=== PATIENT | male | born 1940 | race Caucasian/White ===

== ENCOUNTER 2020-10-28 19:01 | Emergency (ER) | payer MEDICARE, SELFPAY ==
[~2020-10-28] VITALS: Ht 190.5 cm; Wt 88.0 kg
[~2020-10-28 19:01] MED LIST: ASPIRIN EC81 MG PO; ATORVASTATIN CA10 MG PO; BASAGLAR K100 UNIT/1 SQ; CLOPIDOGREL75 MG PO; FAMOTIDINE20 MG PO; FENOFIBRATE145 MG PO; FISH OIL 1,0001 EAC1 PO; FUROSEMIDE20 MG PO; GLIPIZIDE ER10 MG PO; GLUCOPHAGE 500500 MG PO; HUMALOG100 UNIT/1 SQ; HYDROXYZINE HCL50 MG PO; LOPRESSOR 50 MG50 MG PO; MULTI-VITAMIN1 EACH PO; NORVASC 5 MG TAB5 MG PO; OMEPRAZOLE20 MG PO
[2020-10-28 19:27] LABS: HEMOGLOBIN 11.9 gm/dl (14.0-17.5); RED BLOOD COUNT 3.86 M/UL (4.20-5.50); WHITE BLOOD COUNT 5.8 K/UL (4.5-11.0)
[2020-10-29] MEDS ORDERED: ACTOS15 MG PO (09:25)
[2020-10-29] MEDS ORDERED: BYSTOLIC5 MG PO (09:26)
[2020-10-29] MEDS ORDERED: BASAGLAR K100 UNIT/1 SQ (09:27)
== END 2020-10-29 11:00 | disposition short-term general hospital (02) ==
LOC: ER1 19:01 → CDU 21:53
DX: R07.9 Chest pain, unspecified (principal); E11.9 Type 2 diabetes mellitus without complications; Z20.822 Contact with and (suspected) exposure to COVID-19
CPT/HCPCS: ECHO; 71045; 80053; 82550; 82553; 82962; 83874; 84484; 85025; 85379; 93005; 93306; 99152; 99285; C1769; C1894; J0360; J1644; J2250; J3010; J7040; Q9965; U0002

== ENCOUNTER → 2020-11-13 | Outpatient (CLI) | payer MEDICARE, SELFPAY ==
[~2020-11-13] MED LIST changes: +ACTOS15 MG PO; +BYSTOLIC5 MG PO
== END ==
LOC: RAD 12:05
DX: Z00.00 Encounter for general adult medical examination without abnormal findings (principal); J90 Pleural effusion, not elsewhere classified; Z95.1 Presence of aortocoronary bypass graft
CPT/HCPCS: 71046

== ENCOUNTER → 2021-05-13 | Outpatient (CLI) | payer MEDICARE | LOC: LAB 09:02 | DX: E78.5 Hyperlipidemia, unspecified (principal) | CPT/HCPCS: 36415; 80061 ==

== ENCOUNTER → 2021-06-13 | Outpatient (CLI) | payer MEDICARE ==
[~2021-06-13] VITALS: Ht 182.9 cm; Wt 78.9 kg
== END ==
LOC: EROP 09:35 → ER1 09:35 → EDSTATUS 10:00
DX: U07.1 COVID-19 (principal)
CPT/HCPCS: 96365

== ENCOUNTER → 2021-10-18 | Outpatient (CLI) | payer MEDICARE | LOC: KOH-I 14:46 | DX: R07.81 Pleurodynia (principal) | CPT/HCPCS: 71101 ==

== ENCOUNTER → 2021-10-26 | Outpatient (CLI) | payer MEDICARE | LOC: MRI 12:50 | DX: I63.50 Cerebral infarction due to unspecified occlusion or stenosis of unspecified cerebral artery (principal); I10 Essential (primary) hypertension; G45.9 Transient cerebral ischemic attack, unspecified; R55 Syncope and collapse; R26.89 Other abnormalities of gait and mobility; R94.31 Abnormal electrocardiogram [ECG] [EKG]; I25.10 Atherosclerotic heart disease of native coronary artery without angina pectoris | CPT/HCPCS: ECHO; 70544; 70551; 93306; 93880 ==

== ENCOUNTER → 2021-12-01 | Outpatient (CLI) | payer MEDICARE | LOC: LAB 10:02 | DX: I21.9 Acute myocardial infarction, unspecified (principal); E78.5 Hyperlipidemia, unspecified | CPT/HCPCS: 36415; 80061 ==